=== PATIENT | female | born 1940 | race Caucasian/White ===

== ENCOUNTER 2017-08-01 09:55 | Day surgery (SDC) | payer MEDICARE ==
[~2017-08-01] VITALS: Ht 149.9 cm; Wt 70.5 kg
[~2017-08-01 09:55] MED LIST: ACET-1600 PO; ALBU8.5H8 INH; ASCO250T2 PO; BUPIVACAINE/PF 0.5% ONE; EPINEPHRINE 1 MG/ML, 1ML ONE; LIDOCAINE 1%, 50ML ONE; LORA10TA75 PO; MONT10TA6 PO; PRAV20TA2 PO
[2017-08-01 10:20] VITALS: BP 122/78
[2017-08-01] MEDS ORDERED: LACTATED RINGERS 1,000 ML IV SCH (10:35)
[2017-08-01] MEDS ORDERED: EPHEDRINE 50 MG/ML, 1ML IVPush PRN (11:00)
[2017-08-01] MEDS ORDERED: METOPROLOL 1 MG/ML, 5ML IV PRN (11:00)
[2017-08-01] MEDS ORDERED: LABETALOL 5MG/ML, 20ML IV PRN (11:00)
[2017-08-01] MEDS ORDERED: ALBUTEROL SULFATE 2.5 MG/3 ML NPPB PRN (11:00)
[2017-08-01] MEDS ORDERED: hydrALAzine 20 MG/ML, 1ML IV PRN (11:00)
[2017-08-01] MEDS ORDERED: ONDANSETRON 2MG/ML, 2ML IVPush PRN (11:00)
[2017-08-01] MEDS ORDERED: ACETAMINOPHEN 325 MG TABLET PO PRN (11:00)
[2017-08-01] MEDS ORDERED: OXYcodone 5 MG/5 ML ORAL.SOL UDC PO PRN (11:00)
[2017-08-01] MEDS ORDERED: HYDROmorphone 1 MG/ML, 1ML IV PRN (11:00)
[2017-08-01] MEDS ORDERED: ONDANSETRON 2MG/ML, 2ML ONE (11:18)
[2017-08-01] MEDS ORDERED: CEFAZOLIN 1,000 MG ONE (11:18)
[2017-08-01] MEDS ORDERED: PROPOFOL 10 MG/ML, 20ML ONE (11:18)
[2017-08-01] MEDS ORDERED: DEXAMETHASONE 4 MG/ML, 1ML ONE (11:18)
[2017-08-01] MEDS ORDERED: FENTANYL PF 100 MCG/2ML ONE ×2 (11:30→12:21)
[2017-08-01] MEDS ORDERED: TEMPLATE NON-FORMULARY MED. (Albuterol Sulfate (Proair Hfa) 2 PUFF) INH SCH (11:30)
[2017-08-01] MEDS ORDERED: ACETAMINOPHEN 650 MG/20.3 ML UDC ONE (12:21)
[2017-08-01] MEDS ORDERED: OXYcodone 5 MG/5 ML ORAL.SOL UDC ONE (12:22)
[2017-08-01] MEDS: FENTANYL PF 100 MCG/2ML IV PRN ×3 (12:28→12:44)
[2017-08-01] MEDS ORDERED: ACETAMINOPHEN 500 MG TABLET PO SCH (16:00)
[2017-08-01] MEDS ORDERED: PRAVASTATIN 20 MG TABLET PO SCH (21:00)
[2017-08-02] MEDS ORDERED: LORATADINE 10 MG TABLET PO SCH (09:00)
[2017-08-02] MEDS ORDERED: ASCORBIC ACID 250 MG PO SCH (09:00)
[2017-08-02] MEDS ORDERED: MONTELUKAST 10 MG TABLET PO SCH (09:00)
== END 2017-08-01 15:20 ==
LOC: OUT 09:55
PROVIDERS: ATTEND Orthopaedic Surgery
DX: M23.241 Derangement of anterior horn of lateral meniscus due to old tear or injury, right knee (principal); M23.221 Derangement of posterior horn of medial meniscus due to old tear or injury, right knee; M94.261 Chondromalacia, right knee; M65.861 Other synovitis and tenosynovitis, right lower leg; J45.909 Unspecified asthma, uncomplicated; Z86.14 Personal history of Methicillin resistant Staphylococcus aureus infection; M81.0 Age-related osteoporosis without current pathological fracture; Z87.891 Personal history of nicotine dependence; Z88.5 Allergy status to narcotic agent; Z88.8 Allergy status to other drugs, medicaments and biological substances; Z88.6 Allergy status to analgesic agent
CPT/HCPCS: 29880; 93005; J0171; J0690; J1100; J2405; J2704; J3010; J3490; J7120